=== PATIENT | male | born 1995 | race Caucasian/White ===

== ENCOUNTER 2018-06-17 08:58 | Emergency (ER) | payer OTHER ==
[2018-06-17] MEDS ORDERED: DIPHTH,PERTUSS(ACELL),TET 0.5 ML DISP.SYRIN IM ONE (09:09)
--- NOTE | 2018-06-17 09:13 | PDOC ---
Attending Attestation - Resident Resident Name: RyanMalka - ED Attending Attestation I have performed the following: I have examined & evaluated the patient, The case was reviewed & discussed with the resident, I agree w/resident's findings & plan, Exceptions are as noted - HPI HPI: 23 yo M no significant PMH presents with crush injury to L middle finger. Sustained laceration. Denies pain, stating that the tip of his finger is burning , numb. Cannot recall last tetanus booster. - Physicial Exam PE: GENERAL: Awake, alert, and fully oriented, in no acute distress HEAD: No signs of trauma EYES: PERRLA, EOMI, sclera anicteric, conjunctiva clear ENT: Auricles normal inspection, hearing grossly normal, nares patent, oropharynx clear without exudates. Moist mucosa NECK: Normal ROM, supple, no lymphadenopathy, JVD, or masses EXTREMITIES: R 3rd finger with complex laceration to the tip of the finger, dec sensation to the same. No active bleeding, no visible FB. NEUROLOGICAL: Cranial nerves II through XII grossly intact. Normal speech, normal gait SKIN: Warm, Dry, normal turgor, no rashes or lesions noted. - Medical Decision Making Will obtain XR to r/o FB, then will repair.
--- NOTE | 2018-06-17 09:25 | PDOC ---
History of Present Illness - General Chief Complaint: Injury Stated Complaint: LACERATION ON FINGER Time Seen by Provider: 06/17/18 09:08 - History of Present Illness Initial Comments: Chris Chacon is an otherwise healthy 23yo man who presents with an injury to the left middle finger. He reports that he was carrying a large pane of glass with a coworker, and the glass tipped over onto his finger while they were setting it down. He sustained a soft tissue injury to the left middle finger. He and the coworker, also present, deny that there was any broken glass. The laceration occured due to the weight of the glass. Mr Chacon denies any other injury. He is not sure when his last tetanus shot was. He reports that the injury does not hurt at all, and his finger feels completely numb, but he is still able to move the finger. Past History - Past Medical History Allergies/Adverse Reactions: Allergies Allergy/AdvReac Type Severity Reaction Status Date / Time No Known Allergies Allergy Verified 06/17/18 09:19 Home Medications: Ambulatory Orders Cephalexin [Keflex] 500 mg PO QID #28 capsule 06/17/18 Review of Systems - Review of Systems Comments:: General: No fevers, no chills, no weight or appetite change, no malaise HEENT: No changes in vision, no changes in hearing, no congestion, no sore throat CV: No chest pain, no palpitations, no LE edema Pulm: No SOB, no cough, no wheezing GI: No nausea or vomiting, no change in bowel habits, no melena : No frequency, no urgency, no dysuria Musc: No back pain, no joint swelling. See HPI Skin: No rash, no lesions, no erythema Endo: No excessive thirst, no heat/cold intolerance Heme: No unusual bruising or bleeding, no swollen glands Neuro: No syncope, no numbness/tingling, no focal weakness Vasc: No claudication Psych: No recent change in mood, no SI or HI *Physical Exam - Physical Exam Comments: General: Comfortable, no acute distress HEENT: PERRL, EOMI, MMM, voice normal, normal neck ROM Cards: RRR Pulm: Comfortable on room air Ext: Crush injury to the left middle finger. Patch of skin at distal fingertip intact surrounded by irregular laceration, exposed muscle surrounding distal phalanx. Finger appears warm, minimal bleeding. Thorough neurovascular exam deferred pending xray Vasc: Extremities WWP. Palpable radial pulses bilaterally Skin: Normal color, no rashes or lesions Neuro: A&Ox3, CN grossly intact, normal speech, motor/sensory grossly intact and symmetric Psych: Mood appropriate to situation ED Treatment Course - RADIOLOGY Radiology Studies Ordered: Category Date Time Status FINGER(S) LEFT [RAD] Stat Radiology 06/17/18 09:09 Ordered HAND- LEFT [RAD] Stat Radiology 06/17/18 09:09 Ordered Medical Decision Making - Medical Decision Making 06/17/18 09:29 Chris Chacon is an otherwise healthy 23yo man who presents with a crush injury to the left middle finger. - Hand surgery (Dr Glez) contacted. OK to clean, repair in the ED with outpatient follow up. Recommending nerve block. - Tetanus booster - Xrays of left hand and finger to evaluate for fracture or bony injury - Will need detailed neurovascular exam, but deferred until xrays completed - Reports that finger feels numb, no pain meds at this time. If needed, will block finger prior to repair 06/17/18 11:17 - Xrays reviewed. No fracture found - Neurovascular exam completed. No sensory or motor deficits to finger proximal to injury, but unable to assess sensation at isolated patch of skin at distal fingertip. Brisk bleeding from small artery at edge of patch, but distal skin appears pale. - Digital block to left middle finger at bedside (Dr Hubbard). - Spoke to Dr Elliott, plastic surgery 1st call, who recommends allowing healing by secondary intention - Called Dr Glez as he had previously stated he would be in house this afternoon. He will come by to see Mr Swanson for evaluation. - Discussed the plan with Mr Swanson and his parents, now both at bedside. They agree. - NPO for now in case he needs surgical intervention. 06/17/18 12:41 - Seen at bedside by Dr Glez who attempted wound closure. Edges could not be approximated secondary to edema. - Xeroform, kerlix dressing placed. Splint held by JEREMIE applied. - Mr Swanson is aware that he will need to keep the bandage in place and dry until his follow up appointment with Dr Glez on Tuesday. - Prescription for keflex sent to his pharmacy - Pain meds to be prescribed per Dr Hubbard Prescribed tramadol 50mg tablets, q6hr PRN, 20 tablets prescribed - Discharge home with follow up Tuesday with Dr Glez. Seen and discussed with Dr Hubbard. Malka Davis PGY1 *DC/Admit/Observation/Transfer Diagnosis at time of Disposition: Crush injury to finger Qualifiers: Encounter type: initial encounter Qualified Code(s): S67.10XA - Crushing injury of unspecified finger(s), initial encounter - Discharge Dispostion Disposition: HOME Condition at time of disposition: Improved - Prescriptions Prescriptions: Cephalexin [Keflex] 500 mg PO QID #28 capsule - Referrals - Patient Instructions Printed Discharge Instructions: Laceration Repair, DI for Laceration Repair -- Simple Additional Instructions: Postoperative instructions: You had a left middle finger laceration repair on by Dr. Gregorio Glez of [facility]. Activity: Resume your usual activities gradually, but no heavy exertion or lifting more than 10-15 pounds for 4-6 weeks. Please keep dressing clean and dry until follow-up. Eat lightly at first, but advance to your usual diet as tolerated. Pain: For pain, you may use and alternate Tylenol (acetaminophen) 1-2 pills and/ or ibuprofen 200 mg (1-3 pills) every 6 hours each as needed; this means that you can take one OR the other at 3-hour intervals. If you are prescribed a Tylenol/narcotic combination for severe pain, use it instead of plain Tylenol as needed and switch back when your pain starts decreasing. Do not take more than 4000 mg of acetaminophen in a day. Take medications as prescribed or indicated on the labeling. You have also been prescribed tramadol to be used as needed for pain. Your prescription is for tramadol 50mg, one every 6 hours as needed for pain, 20 tablets. It is recommended that you try using acetaminophen and ibuprofen (as described above) first. Take the tramadol if you have continued pain after using these other medications. Follow-up: Call Dr. Glez' office at [phone] to make your follow-up appointment (Tuesday in approximately 2 weeks after surgery as advised). Clinic is held in the [facility] on the first floor of [facility]. Call the office if you have: * increasing pain not responsive to pain medication * fever of 101F or higher * unusual or increasing bleeding or drainage from wounds * increasing redness or swelling at wound sites Also, see your primary medical doctor within 1-2 weeks. - Post Discharge Activity
[2018-06-17 09:35] VITALS: BMI 24.3
--- NOTE | 2018-06-17 12:41 | CONSULT ---
Consult Consult Specialty:: Hand and Microsurgery Reason for Consultation:: left middle finger injury - History of Present Illness Chief Complaint: finger injury at work History of Present Illness: 23yo RHD Male no significant PMH presents with crush injury to Left middle finger. Sustained laceration when a glass pane fell on it, he then quickly dragged it out causing the avulsion. Denies pain, stating that the tip of his finger is burning, numb. Cannot recall last tetanus booster. We were asked to assess. - History Source History Provided By: Patient, Medical Record Limitations to Obtaining History: No Limitations - Alcohol/Substance Use Hx Alcohol Use: No - Smoking History Smoking history: Unknown if ever smoked Home Medications - Allergies Allergies/Adverse Reactions: Allergies Allergy/AdvReac Type Severity Reaction Status Date / Time No Known Allergies Allergy Verified 06/17/18 09:19 - Home Medications Home Medications: Ambulatory Orders Cephalexin [Keflex] 500 mg PO QID #28 capsule 06/17/18 Review of Systems - Review of Systems Constitutional: denies: Chills, Fever Eyes: denies: Blind Spots, Recent Change in Vision HENT: denies: Difficult Swallowing, Throat Pain Neck: denies: Lumps, Pain on Movement, Tenderness Cardiovascular: denies: Chest Pain, Palpitations Respiratory: denies: Cough, SOB Gastrointestinal: denies: Abdominal Pain, Constipation, Diarrhea, Indigestion Genitourinary: denies: Burning, Discharge, Dysuria Musculoskeletal: denies: Back Pain, Muscle Pain Integumentary: denies: Eczema, Pallor, Rash Neurological: denies: Seizure, Syncope Endocrine: denies: Unexplained Weight Gain, Unexplained Weight Loss Hematology/Lymphatic: denies: Easily Bruised, Excessive Bleeding Psychiatric: denies: Anxiety, Depression Physical Exam Vital Signs: Vital Signs Temperature 97.9 F 06/17/18 11:50 Pulse Rate 50 L 06/17/18 11:50 Respiratory Rate 18 06/17/18 11:50 Blood Pressure 141/57 L 06/17/18 11:50 O2 Sat by Pulse Oximetry (%) 96 06/17/18 11:50 Constitutional: Yes: Well Nourished, No Distress, Calm Eyes: Yes: Conjunctiva Clear, EOM Intact HENT: Yes: Atraumatic, Normocephalic Neck: Yes: Supple, Trachea Midline Cardiovascular: Yes: Regular Rate and Rhythm, S1, S2 Respiratory: Yes: Regular, CTA Bilaterally Gastrointestinal: Yes: Normal Bowel Sounds, Soft. No: Abdomen, Obese, Tenderness, Tenderness, Epigastrium ...Rectal Exam: Yes: Deferred Renal/: No: CVA Tenderness - Left, CVA Tenderness - Right Breast(s): No: Discharge from Nipple, Gynecomastia Musculoskeletal: No: Muscle Pain, Muscle Weakness Extremities: No: Cool, Cyanosis Integumentary: No: Jaundice, Rash Wound/Incision: Yes: Jyoti Intact, Bleeding, Unapproximated, Other (volar abulsion of pad left middle finger partially repaired distally. vicryl sutures) Neurological: Yes: Alert, Oriented Psychiatric: Yes: Alert, Oriented Imaging - Results X-ray: Report Reviewed, Image Reviewed (no frature or dislocation, softi tissue avulsion of left middle finger) Problem List - Problems (1) Laceration of finger of left hand without damage to nail Assessment/Plan: 23yo RHD male with left middle finger volar pad laceration/ partial avulsion NPO and IVF hydration IV antibiotcs Adequate analgessia Bedside repair of pad partial avulsion Discussed with patient risks, benefits and alternatives of aforementioned procedure, including but not limited to bleeding, infection, injury to adjacent structures, loss of fucntion need for further procedures, ; alternatives include antibiotics, delayed or no surgery - risks of this include failure of nonoperative therapy, sepsis, recurrence, . Patient desires to proceed with operation - will perform bedside procedure above. Informed consent signed for same. Code(s): S61.219A - LACERATION W/O FB OF UNSP FINGER W/O DAMAGE TO NAIL, INIT Qualifiers: Encounter type: initial encounter Finger: middle finger Foreign body presence: without foreign body Qualified Code(s): S61.213A - Laceration without foreign body of left middle finger without damage to nail, initial encounter (2) Laceration of finger, left Code(s): S61.219A - LACERATION W/O FB OF UNSP FINGER W/O DAMAGE TO NAIL, INIT Qualifiers: Encounter type: initial encounter Finger: middle finger Damage to nail status: without damage Foreign body presence: without foreign body Qualified Code(s): S61.213A - Laceration without foreign body of left middle finger without damage to nail, initial encounter (3) Laceration of finger, middle Code(s): S61.218A - LACERATION W/O FB OF FINGER W/O DAMAGE TO NAIL, INIT Qualifiers: Encounter type: initial encounter Damage to nail status: without damage Foreign body presence: without foreign body Laterality: left Qualified Code( s): S61.213A - Laceration without foreign body of left middle finger without damage to nail, initial encounter (4) Crush injury to finger Code(s): S67.10XA - CRUSHING INJURY OF UNSPECIFIED FINGER(S), INITIAL ENCOUNTER Qualifiers: Encounter type: initial encounter Qualified Code(s): S67.10XA - Crushing injury of unspecified finger(s), initial encounter
--- NOTE | 2018-06-17 12:42 | PROC ---
Incision and Drainage Indication/Location: Laceration repair of left middle finger tip avulsion Risks and Benefits Explained: Yes Consent on Chart: Yes Betadine cleansed: Yes Anesthesia: 1% Lidocaine Irrigated with Normal Saline: Yes Plain packing: No Sterile Dressing Applied: Yes - Remarks Remarks: partial avulsion of left middle finger pad was approximated with 4-0 nylon with care taken not to strangulate the remaining vascular pedicle. The pulp was clearly stretched but did appear viable.
[2018-06-17 13:51] VITALS: BP 129/73; PULSE 58; TEMP 98.2
== END 2018-06-17 13:45 | disposition home or self-care (01) ==
LOC: JER 08:58
PROC: 3E0234Z Introduction of Serum, Toxoid and Vaccine into Muscle, Percutaneous Approach (ICD-10-PCS; principal; 2018-06-17)
PROC: 2W3KX1Z Immobilization of Left Finger using Splint (ICD-10-PCS; 2018-06-17)
PROC: 0JQK0ZZ Repair Left Hand Subcutaneous Tissue and Fascia, Open Approach (ICD-10-PCS; 2018-06-17)
DX: S67.193A Crushing injury of left middle finger, initial encounter (principal); S61.213A Laceration without foreign body of left middle finger without damage to nail, initial encounter; W23.0XXA Caught, crushed, jammed, or pinched between moving objects, initial encounter; Y93.H3 Activity, building and construction; Y92.69 Other specified industrial and construction area as the place of occurrence of the external cause; Y99.0 Civilian activity done for income or pay
CPT/HCPCS: 73130-TC-LT-FY; 73140-TC-LT-FY; 90715; 99282-25

== ENCOUNTER 2018-06-26 09:49 | Day surgery (SDC) | payer OTHER ==
[2018-06-26 10:09] VITALS: BMI 53.6
--- NOTE | 2018-06-26 10:58 | HP ---
Admitting History and Physical - Admission Chief Complaint: left middle avulsion History of Present Illness: 23yo RHD Male no significant PMH presents with crush injury to Left middle finger. Sustained laceration when a glass pane fell on it at work, he then quickly dragged it out causing the avulsion. Denies pain, stating that the tip of his finger is burning, numb. Cannot recall last tetanus booster. Since being seen in the ED pain and welling has been overwhelming and he was noticed to have signs of worsening infection despite being on antibiotics. We were asked to assess. History Source: Patient, Medical Record Limitations to Obtaining History: No Limitations - Smoking History Smoking history: Unknown if ever smoked - Alcohol/Substance Use Hx Alcohol Use: No Home Medications - Allergies Allergies/Adverse Reactions: Allergies Allergy/AdvReac Type Severity Reaction Status Date / Time No Known Allergies Allergy Verified 06/17/18 09:19 - Home Medications Home Medications: Ambulatory Orders Cephalexin [Keflex] 500 mg PO QID #28 capsule 06/17/18 Cephalexin [Keflex] 500 mg PO QID 10 Days #40 capsule 06/26/18 Oxycodone HCl/Acetaminophen [Percocet 5/325 -] 1 - 2 tab PO Q6H #45 tab MDD 5 Review of Systems - Review of Systems Constitutional: denies: Chills, Fever Eyes: denies: Blind Spots, Recent Change in Vision Neck: denies: Pain on Movement, Swollen Glands Cardiovascular: denies: Chest Pain, Palpitations Respiratory: denies: Cough, SOB Gastrointestinal: denies: Abdominal Pain, Bloating, Constipation Genitourinary: denies: Burning, Dysuria Breasts: reports: No Symptoms Reported. denies: Pain Musculoskeletal: denies: Back Pain, Muscle Cramps, Muscle Weakness Integumentary: denies: Blister, Pallor Neurological: denies: Seizure, Syncope Endocrine: denies: Unexplained Weight Gain, Unexplained Weight Loss Hematology/Lymphatic: denies: Easily Bruised, Excessive Bleeding Psychiatric: denies: Anxiety, Depression Physical Examination Vital Signs: Vital Signs Temperature 98.0 F 06/26/18 10:07 Pulse Rate 71 06/26/18 10:07 Respiratory Rate 16 06/26/18 10:07 Blood Pressure 137/66 06/26/18 10:07 O2 Sat by Pulse Oximetry (%) 99 06/26/18 10:07 Constitutional: Yes: Well Nourished, No Distress, Calm Eyes: Yes: Conjunctiva Clear, EOM Intact HENT: Yes: Atraumatic, Normocephalic Neck: Yes: Supple, Trachea Midline Cardiovascular: Yes: Regular Rate and Rhythm, S1, S2 Respiratory: Yes: Regular, CTA Bilaterally Gastrointestinal: Yes: Normal Bowel Sounds, Soft. No: Tenderness ...Rectal Exam: Yes: Deferred Renal/: No: CVA Tenderness - Left, CVA Tenderness - Right Musculoskeletal: No: Back Pain, Joint Swelling Extremities: No: Cool, Cyanosis Edema: No Peripheral Pulses WNL: Yes Peripheral Pulses: Left Radial: 2+, Right Radial: 2+, Left Doralis Pedis: 2+, Right Dorsalis Pedis: 2+ Integumentary: No: Jaundice, Rash Neurological: Yes: Alert, Oriented Psychiatric: Yes: Alert, Oriented Imaging - Results X-ray: Report Reviewed, Image Reviewed (no acute fracture or dislocation) Problem List - Problems (1) Crush injury to finger Assessment/Plan: 23 yo RHD male with Left middle finger pad avulsion NPO and IVF hydration IV antibiotics Discussed with patient risks, benefits and alternatives revision left middle ring finger tip with V-Y flap versus skin graft, including but not limited to bleeding, infection, injury to adjacent structures, need for further procedures , ; alternatives include antibiotics, delayed or no surgery - risks of this include failure of nonoperative therapy, sepsis, recurrence, . Patient desires to proceed with operation - will take to OR for above. Informed consent signed for same. Code(s): S67.10XA - CRUSHING INJURY OF UNSPECIFIED FINGER(S), INITIAL ENCOUNTER Qualifiers: Encounter type: subsequent encounter Qualified Code(s): S67.10XD - Crushing injury of unspecified finger(s), subsequent encounter (2) Laceration of finger of left hand without damage to nail Code(s): S61.219A - LACERATION W/O FB OF UNSP FINGER W/O DAMAGE TO NAIL, INIT Qualifiers: Encounter type: subsequent encounter Finger: middle finger Foreign body presence: without foreign body Qualified Code(s): S61.213D - Laceration without foreign body of left middle finger without damage to nail, subsequent encounter (3) Laceration of finger, left Code(s): S61.219A - LACERATION W/O FB OF UNSP FINGER W/O DAMAGE TO NAIL, INIT Qualifiers: Encounter type: subsequent encounter Finger: middle finger Foreign body presence: without foreign body (4) Laceration of finger, middle Code(s): S61.218A - LACERATION W/O FB OF FINGER W/O DAMAGE TO NAIL, INIT Qualifiers: Encounter type: subsequent encounter Damage to nail status: without damage Foreign body presence: without foreign body Laterality: left Qualified Code(s): S61.213D - Laceration without foreign body of left middle finger without damage to nail, subsequent encounter
--- NOTE | 2018-06-26 11:06 | OP ---
Operative Note - Note: Operative Date: 06/26/18 Pre-Operative Diagnosis: left middle finger tip degloving avulsion. Operation: revision of finger tip left middle finger with V-Y advancement flap Findings: dry gangrene of left middle finger tip. Post-Operative Diagnosis: Same as Pre-op Surgeon: Gregorio Glez Anesthesiologist/PLANNING SPECIALIST: Shayne Manuel Anesthesia: General, Local Specimens Removed: left middle finger tip Estimated Blood Loss (mls): 2 Instrument used (Debridements only): scissor, scalpel Fluid Volume Replaced (mls): 400
--- NOTE | 2018-06-26 11:07 | DS ---
Physical Examination Vital Signs: Vital Signs Temperature 98.0 F 06/26/18 10:07 Pulse Rate 71 06/26/18 10:07 Respiratory Rate 16 06/26/18 10:07 Blood Pressure 137/66 06/26/18 10:07 O2 Sat by Pulse Oximetry (%) 99 06/26/18 10:07 Findings/Remarks: stable postopertively. tolerating diet stable for discharge home Constitutional: Yes: Well Nourished, No Distress, Calm Eyes: Yes: Conjunctiva Clear, EOM Intact HENT: Yes: Atraumatic, Normocephalic Neck: Yes: Supple, Trachea Midline Cardiovascular: Yes: Regular Rate and Rhythm, S1, S2 Respiratory: Yes: Regular, CTA Bilaterally Gastrointestinal: Yes: Normal Bowel Sounds, Soft. No: Tenderness ...Rectal Exam: Yes: Deferred Renal/: No: CVA Tenderness - Left, CVA Tenderness - Right Musculoskeletal: No: Muscle Pain, Muscle Weakness Extremities: No: Cool, Cyanosis Edema: No Peripheral Pulses WNL: Yes Peripheral Pulses: Left Radial: 2+, Right Radial: 2+, Left Doralis Pedis: 2+, Right Dorsalis Pedis: 2+ Integumentary: No: Jaundice, Rash Wound/Incision: Yes: Clean/Dry, Well Approximated, Dressing Dry and Intact Neurological: Yes: Alert, Oriented Psychiatric: Yes: Alert, Oriented Discharge Summary Reason For Visit: INJURY TO FINGER left middle finger tip avulsion Procedures: Principal: revision of left middle finger tip with V-Y advancement flap Hospital Course: admitted for ambulatory surgery. uneventful procedure. stable for discharge home Condition: Improved - Instructions Diet, Activity, Other Instructions: Postoperative instructions: You had a left middle finger revision of finger tip with V-Y flap and skin graft on 06/26/[address] Gregorio Glez of [facility]. Activity: Resume your usual activities gradually, but no heavy exertion or lifting more than 10-15 pounds for 4-6 weeks. Keep dressing clean and dry until followup appointment. Eat lightly at first, but advance to your usual diet as tolerated. Pain: For pain, you may use and alternate Tylenol (acetaminophen) 1-2 pills and/ or ibuprofen 200 mg (1-3 pills) every 6 hours each as needed; this means that you can take one OR the other at 3-hour intervals. If you are prescribed a Tylenol/narcotic combination for severe pain, use it instead of plain Tylenol as needed and switch back when your pain starts decreasing. Do not take more than 4000 mg of acetaminophen in a day. Take medications as prescribed or indicated on the labeling. Follow-up: Call Dr. Glez' office at [phone] to make your postop appointment (Tuesday 2 weeks after surgery as advised). Clinic is held in the Diagnostic [facility] on the first floor of [facility]. Call the office if you have: * increasing pain not responsive to pain medication * fever of 101F or higher * unusual or increasing bleeding or drainage from wounds * increasing redness or swelling at wound sites Also, see your primary medical doctor within 1-2 weeks. Disposition: HOME - Home Medications Comprehensive Discharge Medication List: Ambulatory Orders Cephalexin [Keflex] 500 mg PO QID #28 capsule 06/17/18 Cephalexin [Keflex] 500 mg PO QID 10 Days #40 capsule 06/26/18 Oxycodone HCl/Acetaminophen [Percocet 5/325 -] 1 - 2 tab PO Q6H #45 tab MDD 5
[2018-06-26] MEDS ORDERED: AMPICILLIN NA/SULBACTAM NA 3 GM in SODIUM CHLORIDE 100 ML IVPB ONE (11:15)
--- NOTE | 2018-06-26 11:47 | PDOC ---
History of Present Illness - General Chief Complaint: Injury Stated Complaint: INJURY TO FINGER Time Seen by Provider: 06/26/18 11:46 - History of Present Illness Initial Comments: 06/26/18 11:47 23yo RHD Male no significant PMH presents with crush injury to Left middle finger, sent in for OR today with Dr. Glez. Pt with no acute complaints currently but notes increased swelling and pain since initial injury last week. Past History - Past Medical History Allergies/Adverse Reactions: Allergies Allergy/AdvReac Type Severity Reaction Status Date / Time No Known Allergies Allergy Verified 06/17/18 09:19 Home Medications: Ambulatory Orders Cephalexin [Keflex] 500 mg PO QID #28 capsule 06/17/18 Cephalexin [Keflex] 500 mg PO QID 10 Days #40 capsule 06/26/18 Oxycodone HCl/Acetaminophen [Percocet 5/325 -] 1 - 2 tab PO Q6H #45 tab MDD 5 COPD: No - Immunization History Td Vaccination: No (UNKNOWN) - Suicide/Smoking/Psychosocial Hx Smoking History: Unknown if ever smoked Information on smoking cessation initiated: No Hx Alcohol Use: No Drug/Substance Use Hx: No Substance Use Type: None Review of Systems - Review of Systems Comments:: 06/26/18 11:48 "GENERAL/CONSTITUTIONAL: No fever or chills. No weakness. HEAD, EYES, EARS, NOSE AND THROAT: No change in vision. No ear pain or discharge. No sore throat. CARDIOVASCULAR: No chest pain, no shortness of breath, no loss of consciousness RESPIRATORY: No cough, wheezing, or hemoptysis. GASTROINTESTINAL: No nausea, vomiting, diarrhea or constipation. GENITOURINARY: No dysuria, frequency, or change in urination. MUSCULOSKELETAL: + L 3rd digit injury SKIN: No rash NEUROLOGIC: No vertigo, no change in strength/sensation. ENDOCRINE: No increased thirst. No abnormal weight change. HEMATOLOGIC/LYMPHATIC: No anemia, easy bleeding, or history of blood clots. ALLERGIC/IMMUNOLOGIC: No hives or skin allergy. *Physical Exam - Vital Signs Last Vital Signs Temp Pulse Resp BP Pulse Ox 98.0 F 71 16 137/66 99 06/26/18 10:07 06/26/18 10:07 06/26/18 10:07 06/26/18 10:07 06/26/18 10:07 - Physical Exam Comments: 06/26/18 11:49 "GENERAL: Awake, alert, and fully oriented, in no acute distress. HEAD: No signs of trauma EYES: PERRLA, EOMI, sclera anicteric, conjunctiva clear ENT: Auricles normal inspection, hearing grossly normal, nares patent, oropharynx clear without exudates. Moist mucosa NECK: Nontender, no stepoffs, Normal ROM, supple, no lymphadenopathy, JVD, or masses LUNGS: Breath sounds equal, clear to auscultation bilaterally. No wheezes, and no crackles HEART: Regular rate and rhythm, normal S1 and S2, no murmurs, rubs or gallops ABDOMEN: Soft, nontender, normoactive bowel sounds. No guarding, no rebound. No masses EXTREMITIES: + L 3rd digit dressing in place NEUROLOGICAL: Cranial nerves II through XII intact. 5/5 strength and sensation in all extremities, Normal speech, normal gait, normal cerebellar function SKIN: Warm, Dry, normal turgor, no rashes or lesions noted. Medical Decision Making - Medical Decision Making 06/26/18 11:49 23 M with crush injury of L middle finger. Sent in for OR with Dr. Glez today. - Admit ASU *DC/Admit/Observation/Transfer Diagnosis at time of Disposition: Crush injury to finger Qualifiers: Encounter type: subsequent encounter Qualified Code(s): S67.10XD - Crushing injury of unspecified finger(s), subsequent encounter - Discharge Dispostion Condition at time of disposition: Improved Decision to Admit order: Yes - Prescriptions Prescriptions: Cephalexin [Keflex] 500 mg PO QID 10 Days #40 capsule Oxycodone HCl/Acetaminophen [Percocet 5/325 -] 1 - 2 tab PO Q6H #45 tab MDD 5 - Referrals - Patient Instructions Printed Discharge Instructions: DI for Laceration Repair -- Finger Additional Instructions: Postoperative instructions: You had a left middle finger revision of finger tip with V-Y flap and skin graft on 06/26/[address] Gregorio Glez of [facility]. Activity: Resume your usual activities gradually, but no heavy exertion or lifting more than 10-15 pounds for 4-6 weeks. Keep dressing clean and dry until followup appointment. Eat lightly at first, but advance to your usual diet as tolerated. Pain: For pain, you may use and alternate Tylenol (acetaminophen) 1-2 pills and/ or ibuprofen 200 mg (1-3 pills) every 6 hours each as needed; this means that you can take one OR the other at 3-hour intervals. If you are prescribed a Tylenol/narcotic combination for severe pain, use it instead of plain Tylenol as needed and switch back when your pain starts decreasing. Do not take more than 4000 mg of acetaminophen in a day. Take medications as prescribed or indicated on the labeling. Follow-up: Call Dr. Glez' office at [phone] to make your postop appointment (Tuesday 2 weeks after surgery as advised). Clinic is held in the [facility] on the first floor of [facility]. Call the office if you have: * increasing pain not responsive to pain medication * fever of 101F or higher * unusual or increasing bleeding or drainage from wounds * increasing redness or swelling at wound sites Also, see your primary medical doctor within 1-2 weeks. - Post Discharge Activity Forms/Work/School Notes: Back to Work - Attestations Physician Attestion: 06/26/18 11:49 I, Dr. Mich Michaels MD, attest that this document has been prepared under my direction and personally reviewed by me in its entirety. I further attest, that it accurately reflects all work, treatment, procedures and medical decision -making performed by me.
[2018-06-26] MEDS ORDERED: MIDAZOLAM HCL 2 MG/2 ML SINGLE DOSE VIAL ONE ×3 (12:08→17:19)
[2018-06-26] MEDS ORDERED: PROPOFOL 20 ML ONE ×3 (12:09→17:20)
[2018-06-26] MEDS ORDERED: ONDANSETRON 4 MG/2 ML VIAL IVPUSH PRN (12:19)
[2018-06-26] MEDS ORDERED: LACTATED RINGERS SOLUTION 1,000 ML IV SCH (12:30)
[2018-06-26] MEDS ORDERED: BUPIVACAINE HCL/PF 0.5% (5MG/ML) 10 ML VIAL ONE ×2 (12:30→13:41)
[2018-06-26] MEDS ORDERED: DEXAMETHASONE SOD PHOSPHATE/PF 10 MG/ML SDV ONE (13:41)
[2018-06-26] MEDS ORDERED: oxyCODONE HCL 5 MG TABLET PO PRN (18:11)
[2018-06-26 19:52] VITALS: BP 133/67; PULSE 83; TEMP 97.9
== END 2018-06-26 19:45 | disposition home or self-care (01) ==
LOC: JER 09:49 → JASUSAT 11:49
CPT/HCPCS: 94760; 99282-25

== ENCOUNTER 2018-06-28 19:34 | Emergency (ER) | payer OTHER ==
[2018-06-28 19:39] VITALS: BP 143/96; PULSE 71; TEMP 98; BMI 24.3
--- NOTE | 2018-06-28 19:39 | PDOC ---
Rapid Medical Evaluation Time Seen by Provider: 06/28/18 19:36 Medical Evaluation: Allergies Allergy/AdvReac Type Severity Reaction Status Date / Time No Known Allergies Allergy Verified 06/26/18 12:28 06/28/18 19:38 I have performed a brief in-person evaluation of this patient. The patient presents with a chief complaint of: Left 3rd finger pain and bleeding Pertinent physical exam findings: Full sensation to finger. I have ordered the following: nothing The patient will proceed to the ED for further evaluation. Discharge Disposition - Diagnosis Post-op pain - Referrals - Patient Instructions - Post Discharge Activity
--- NOTE | 2018-06-28 21:23 | PDOC ---
History of Present Illness - General Chief Complaint: Injury Stated Complaint: FINGER INJURY Time Seen by Provider: 06/28/18 19:36 - History of Present Illness Initial Comments: 06/28/18 21:20 23-year-old male 2 days status post left middle finger free flap presents for evaluation because he saturated dressing and he has been bleeding through. Past History - Past Medical History Allergies/Adverse Reactions: Allergies Allergy/AdvReac Type Severity Reaction Status Date / Time No Known Allergies Allergy Verified 06/26/18 12:28 Home Medications: Ambulatory Orders Cephalexin [Keflex] 500 mg PO QID 10 Days #40 capsule 06/26/18 Oxycodone HCl/Acetaminophen [Oxycodone-Acetaminophen 10-325] 1 each PO Q6H #60 tablet MDD 4 06/26/18 COPD: No - Immunization History Td Vaccination: No (UNKNOWN) - Suicide/Smoking/Psychosocial Hx Smoking History: Unknown if ever smoked Hx Alcohol Use: No Drug/Substance Use Hx: No Substance Use Type: None Review of Systems - Review of Systems Musculoskeletal: Yes: See HPI *Physical Exam - Vital Signs Last Vital Signs Temp Pulse Resp BP Pulse Ox 98.0 F 71 18 143/96 99 06/28/18 19:37 06/28/18 19:37 06/28/18 19:37 06/28/18 19:37 06/28/18 19:37 - Physical Exam Comments: 06/28/18 21:21 Left middle finger surgical dressing is saturated with dried blood splint is in place. Moderate Sedation - Procedure Monitoring Vital Signs: Procedure Monitoring Vital Signs Temperature 98.0 F 06/28/18 19:37 Pulse Rate 71 06/28/18 19:37 Respiratory Rate 18 06/28/18 19:37 Blood Pressure 143/96 06/28/18 19:37 O2 Sat by Pulse Oximetry (%) 99 06/28/18 19:37 Medical Decision Making - Medical Decision Making 06/28/18 21:21 Dressing was reinforced sterile gauze he will follow-up with his hand surgeon one to 2 days 06/28/18 21:22 d/w Dr Glez *DC/Admit/Observation/Transfer Diagnosis at time of Disposition: Post-op pain - Discharge Dispostion Disposition: HOME Condition at time of disposition: Stable Decision to Admit order: No - Referrals Referrals: Gregorio Glez MD [Staff Physician] - - Patient Instructions Additional Instructions: Return to the emergency room should you have any other issues otherwise follow- up with Dr. Glez as scheduled. Keep the area elevated above the level of your heart. - Post Discharge Activity
== END 2018-06-28 21:30 | disposition home or self-care (01) ==
LOC: JERFT 19:34
DX: Z48.817 Encounter for surgical aftercare following surgery on the skin and subcutaneous tissue (principal); Z48.01 Encounter for change or removal of surgical wound dressing
CPT/HCPCS: 99281-25